=== PATIENT | male | born 1985 ===

== ENCOUNTER → 2017-07-01 | Outpatient (REF) | payer OTHER ==
[2017-07-01 16:07] LABS: IMMMOTILE SPERM CENTRIFUGED ABSENT (ABSENT); IMMOTILE SPERM ABSENT (ABSENT); MOTILE SPERM ABSENT (ABSENT); MOTILE SPERM CENTRIFUGED ABSENT (ABSENT); SEMEN APPEARANCE OPAQUE (OPAQUE); SEMEN VISCOSITY LIQUID (LIQUID); SEMEN VOLUME 5.4 ml (4.0-5.0); SPERM ABNORMAL FORMS WBC'S NOTED; WBC CONCENTRATION <=1 M/ml (<=1 M/ml)
== END ==
LOC: M LAB REF 15:48
DX: Z00.00 Encounter for general adult medical examination without abnormal findings (principal)